=== PATIENT | female | born 2000 | race Caucasian/White ===

== ENCOUNTER 2019-12-14 06:14 | Emergency (ER) | payer OTHER ==
--- NOTE | 2019-12-14 09:23 | ER Document Report ---
HPI - HPI Time Seen by Provider: 12/14/19 08:50 Pain Level: Denies Context: Patient is a 19-year-old female with no past medical history who presents to the emergency department with a chief complaint of a rash to bilateral posterior thighs. Patient states that her symptoms started after November 30. Patient states that it is very itchy. Denies any contact with any poison mena, new lotions, or any other new products. Patient moved here from [place] around that time. Patient does not know if she has history of allergies. - ROS Systems Reviewed and Negative: Yes All other systems reviewed and negative - CONSTITUTIONAL Constitutional: DENIES: Fever, Chills - EENT EENT: DENIES: Sore Throat - CARDIOVASCULAR Cardiovascular: DENIES: Chest pain - RESPIRATORY Respiratory: DENIES: Trouble Breathing, Coughing - GASTROINTESTINAL Gastrointestinal: DENIES: Abdominal Pain, Nausea, Patient vomiting - REPRODUCTIVE LMP: 1 mnth Reproductive: DENIES: : - MUSCULOSKELETAL Musculoskeletal: DENIES: Extremity pain - DERM Skin Color: Normal Skin Problems: Rash - bilateral posterior legs Past Medical History - General Information source: Patient - Social History Smoking Status: Never Smoker Family History: Reviewed & Not Pertinent Patient has homicidal ideation: No Vertical Provider Document - CONSTITUTIONAL Agree With Documented VS: Yes Exam Limitations: No Limitations General Appearance: No Apparent Distress - INFECTION CONTROL TRAVEL OUTSIDE OF THE [place] IN LAST 30 DAYS: Yes - NECK Neck: Normal Inspection - RESPIRATORY Respiratory: Breath Sounds Normal, No Respiratory Distress - CARDIOVASCULAR Cardiovascular: Regular Rate, Regular Rhythm Pulses: Normal: Radial - GI/ABDOMEN Gastrointestinal: Abdomen Non-Tender - MUSCULOSKELETAL/EXTREMETIES Musculoskeletal/Extremeties: FROM, No Edema. negative: Tender, Eccymosis - NEURO Level of Consciousness: Awake, Alert, Appropriate Motor/Sensory: No Motor Deficit, No Sensory Deficit - DERM Integumentary: Warm, Dry, Rash - Bilateral posterior thighs Course - Re-evaluation Re-evalutation: 12/14/19 Presentation of an overall very well-appearing adult in no acute distress, vitals within normal limits with a rash most consistent with a exanthem. Rash is not consistent with acute urticaria, meningitis, Carm[place] spotted fever, and clinical history does support this being an uncomplicated viral exanthem. No indication for further laboratories or imaging studies. Will start the patient on prednisone, vistaril, and pepcid. At this time will discharge with return precautions and follow-up recommendations. Verbal discharge instructions given a the bedside and opportunity for questions given. Medication warnings reviewed. Patient is in agreement with this plan and has verbalized understanding of return precautions and the need for primary care follow-up in the next 24-72 hours. - Vital Signs Vital signs: Temp Pulse Resp BP Pulse Ox 98.3 F 78 18 118/76 100 12/14/19 06:21 12/14/19 06:21 12/14/19 06:21 12/14/19 06:21 12/14/19 06:21 Discharge - Discharge Clinical Impression: Rash Condition: Stable Disposition: HOME, SELF-CARE Additional Instructions: You were seen today in the emergency department for rash. Your rash is consistent with dermatitis from environmental allergies. You are being started on steroids. Also start Pepcid prescribed to you. Take Vistaril as needed for itchiness. I recommend that you follow-up with a primary care provider here in the area and see if you can get a referral to an record searcher. Start [id number] Zyrtec or use the prescription daily as per bottle instructions. Prescriptions: Prednisone [Deltasone 20 mg Tablet] 3 tab PO DAILY 5 Days #15 tablet Famotidine [Pepcid 20 mg Tablet] 20 mg PO BID #12 tablet Hydroxyzine Pamoate [Vistaril 25 mg Capsule] 25 mg PO Q6H PRN #10 capsule PRN Reason: Cetirizine HCl [Zyrtec 10 mg Tablet] 10 mg PO DAILY #30 tablet
[2019-12-14 09:34] VITALS: BP 122/60
== END 2019-12-14 09:34 | disposition home or self-care (01) ==
LOC: ER 06:14
DX: R21 Rash and other nonspecific skin eruption (principal)
CPT/HCPCS: 99282